=== PATIENT | female | born 1955 | race Two or more races ===

== ENCOUNTER 2022-11-25 10:07 | Inpatient (IN) | payer OTHER ==
[~2022-11-25] VITALS: Ht 157.5 cm; Wt 79.8 kg
[2022-11-26] MEDS ORDERED: METFORMIN HCL500 M1 PO (10:19)
[2022-11-26] MEDS ORDERED: NORVASC5 MG PO (10:20)
[2022-11-26] MEDS ORDERED: ATORVASTATIN CA10 MG PO (10:20)
[2022-11-26] MEDS ORDERED: LOSARTAN POTASS50 MG PO (10:20)
[2022-12-16] MEDS ORDERED: DUI500 PO (17:02)
[2022-12-16] MEDS ORDERED: ELIQUIS2.5 MG PO (17:02)
[2022-12-16] MEDS ORDERED: PERCOCET 5-3251 EACH PO (17:02)
== END 2022-12-16 18:28 | DRG 470 ==
LOC: SURG 11-30 08:15 → O/R 12-14 09:56 → SURH 12-14 09:56
PROVIDERS: ADMIT Orthopaedic Surgery; ATTEND Orthopaedic Surgery
PROC: 0SRD0J9 Replacement of Left Knee Joint with Synthetic Substitute, Cemented, Open Approach (ICD-10-PCS; principal; 2022-12-14 10:45)
DX: M17.12 Unilateral primary osteoarthritis, left knee (principal); D62 Acute posthemorrhagic anemia; M81.0 Age-related osteoporosis without current pathological fracture; I10 Essential (primary) hypertension; Z96.652 Presence of left artificial knee joint; Z20.822 Contact with and (suspected) exposure to COVID-19

== ENCOUNTER 2022-12-06 07:51 | Outpatient (CLI) | payer OTHER ==
[~2022-12-06 07:51] MED LIST: ATORVASTATIN CA10 MG PO; LOSARTAN POTASS50 MG PO; METFORMIN HCL500 M1 PO; NORVASC5 MG PO
== END 2022-12-06 07:52 | disposition home or self-care (01) ==
LOC: LAB 07:51
PROVIDERS: ATTEND Orthopaedic Surgery
DX: Z03.818 Encounter for observation for suspected exposure to other biological agents ruled out (principal); Z20.828 Contact with and (suspected) exposure to other viral communicable diseases; Z20.822 Contact with and (suspected) exposure to COVID-19; M35.81 Multisystem inflammatory syndrome

== ENCOUNTER 2022-12-14 08:14 | Outpatient (CLI) | payer OTHER | END 2022-12-14 08:19 | disposition home or self-care (01) | LOC: LAB 08:14 | PROVIDERS: ATTEND Orthopaedic Surgery | DX: Z03.818 Encounter for observation for suspected exposure to other biological agents ruled out (principal); Z20.828 Contact with and (suspected) exposure to other viral communicable diseases; Z20.822 Contact with and (suspected) exposure to COVID-19; M35.81 Multisystem inflammatory syndrome ==